=== PATIENT | female | born 1970 | race Caucasian/White ===

== ENCOUNTER → 2018-01-05 | Outpatient (CLI) | payer BC ==
[2018-01-06 10:26] LABS: Beef IgE <0.35 kU/L (<0.35); Beef IgE Class CLASS 0; Chicken IgE Class CLASS 0; Pork IgE Class CLASS 0; Yeast Bakers/Brew IgE <0.35 kU/L (<0.35)
[2018-01-06 10:27] LABS: Avocado Class CLASS 0; Banana IgE Class CLASS 0; Coffee IgE <0.35 kU/L (<0.35); Coffee IgE Class CLASS 0; Cow's Milk IgE Class CLASS 0; Egg White IgE <0.35 kU/L (<0.35); Hazelnut IgE <0.35 kU/L (<0.35); Hazelnut IgE Class CLASS 0; Kiwi IgE <0.35 kU/L (<0.35); Latex IgE Class CLASS 0; Peanut IgE <0.35 kU/L (<0.35); Potato IgE <0.35 kU/L (<0.35); Potato IgE Class CLASS 0; Soybean IgE <0.35 kU/L (<0.35)
== END | disposition home or self-care (01) ==
LOC: LABWHC1 10:48
PROVIDERS: ATTEND Otolaryngology
DX: J30.89 Other allergic rhinitis (principal)
CPT/HCPCS: 36415; 86001; 86003

== ENCOUNTER 2020-06-13 09:16 | Day surgery (SDC) | payer BC ==
[2020-06-10 17:00] VITALS: BMI 25.1
[~2020-06-13 09:16] MED LIST: LACTATED RINGERS 1,000 ML IV SCH
[2020-06-13 09:48] VITALS: RESP 16; TEMP 98
[2020-06-13] MEDS ORDERED: PROPOFOL 10 MG/ML 20 ML VIAL IV ONE (11:14)
[2020-06-13] MEDS ORDERED: MIDAZOLAM 2 MG/2 ML VIAL ONE (11:14)
[2020-06-13] MEDS ORDERED: fentaNYL (PF) 50 MCG/ML 2 ML AMP ONE (11:14)
--- NOTE | 2020-06-13 11:29 | P.PCN ---
Date of Procedure: 06/13/20 Procedure(s) Performed: BRIEF HISTORY: Patient is a 50-year-old pleasant white female scheduled for an elective colonoscopy as a part of screening for colorectal neoplasia. PROCEDURE PERFORMED: Colonoscopy with biopsy. PREOPERATIVE DIAGNOSIS: Screening for colon cancer. IV sedation per Anesthesia. PROCEDURE: After informed consent was obtained, the patient, was brought into the endoscopy unit. IV sedation was administered by Anesthesia under continuous monitoring. Digital rectal examination was normal. Initially the Olympus CF-160 flexible video colonoscope was then inserted in the rectum, gradually advanced into the cecum without any difficulty. Careful examination was performed as the scope was gradually being withdrawn. Ileocecal valve and the appendiceal orifice were visualized and appeared normal. Prep was excellent. Mucosa of the cecum, ascending colon, transverse colon, descending colon, sigmoid colon, and rectum appeared normal. In the rectosigmoid colon there was a 3 mm and 5 mm polyp that was removed by cold biopsy. Retroflexion was performed in the rectum and no lesions were seen. The patient tolerated the procedure well. IMPRESSION: 3 mm and 5 mm rectosigmoid polyps status post cold biopsy Rest of the colon appeared normal RECOMMENDATIONS: Findings of this examination were discussed with the patient as well as a family.. She was advised to follow with the biopsy results. If the biopsy shows an adenoma she can have a repeat colonoscopy in 5 years
[2020-06-13 11:45] VITALS: BP 100/68; PULSE 76
== END 2020-06-13 12:01 | disposition home or self-care (01) ==
LOC: ORWHC2ENDO 09:16
PROVIDERS: ATTEND Internal Medicine Gastroenterology
DX: Z12.11 Encounter for screening for malignant neoplasm of colon (principal); D12.5 Benign neoplasm of sigmoid colon; G43.909 Migraine, unspecified, not intractable, without status migrainosus; K58.9 Irritable bowel syndrome, unspecified; Z79.899 Other long term (current) drug therapy
CPT/HCPCS: 88305; 84703; 45380; J2250; J3010; J2704

== ENCOUNTER → 2020-07-25 | Outpatient (CLI) | payer BC ==
--- NOTE | 2020-07-28 12:26 | MM ---
Reason for exam: additional evaluation requested from prior study. Last mammogram was performed 7 years ago. History: Patient is nulliparous. Benign cyst aspiration of the right breast, January 2020. Benign cyst aspiration of the right breast, May 2019. Took hormonal contraceptives for 18 years beginning at age 18. Physical Findings: Nurse Summary: 3cm nodule in the right breast at 11 o'clock (nurse ms). MG 3D Diag Mammo W/Cad [facility] Bilateral CC and MLO view(s) were taken. Prior study comparison: August 03, 2013, bilateral MG screening mammo w CAD. August 31, 2011, CAD bilateral diagnostic mammogram. The breast tissue is extremely dense which could obscure a lesion on mammography. Bilateral diffuse waxing/waning nodules most likely cysts, known. These results were verbally communicated with the patient and result sheet given to the patient on 07/25/20. ASSESSMENT: Incomplete: need additional imaging evaluation, BI-RAD 0 RECOMMENDATION: Ultrasound of the right breast. (palpable, 11 o'clock)
--- NOTE | 2020-07-28 12:28 | USB ---
Reason for exam: additional evaluation requested from abnormal screening. History: Patient is nulliparous. Benign cyst aspiration of the right breast, January 2020. Benign cyst aspiration of the right breast, May 2019. Took hormonal contraceptives for 18 years beginning at age 18. US Breast Limited RT Right limited breast ultrasound including focal area of concern, retroareolar and axilla demonstrates a 5.5 x 2.4 x 3.5cm cystic lesion at 2 o'clock, large simple cyst, benign appearing. These results were verbally communicated with the patient and result sheet given to the patient on 07/25/20. ASSESSMENT: Benign, BI-RAD 2 RECOMMENDATION: Routine screening mammogram of both breasts in 1 year.
== END | disposition home or self-care (01) ==
LOC: RADMAMWWP 14:55
PROVIDERS: ATTEND Obstetrics & Gynecology
DX: N64.89 Other specified disorders of breast (principal); N60.01 Solitary cyst of right breast
CPT/HCPCS: 77062; 77066

== ENCOUNTER → 2022-05-19 | Outpatient (CLI) | payer BC ==
--- NOTE | 2022-05-19 14:40 | USB ---
Reason for Exam: Additional evaluation requested from abnormal screening. Patient History: Menarche at age 14. Patient has no children. Hormonal Contraceptives for 18 years from age 18 until age 36. 01/2020, Benign Cyst Aspiration on the right side. 05/2019, Benign Cyst Aspiration on the right side. Risk Values: Tonya 5 year model risk: 1.1%. NCI Lifetime model risk: 8.8%. Technique: Method: Whole Breast Handheld. Prior Study Comparison: 08/03/2013 Bilateral Screening Mammogram, [facility]. 07/25/2020 Bilateral Diagnostic Mammogram, [facility]. 05/12/2022 Bilateral MG screening mammo w CAD, [facility]. Findings: The whole breast of the left breast, the axilla of the left breast and the retroareolar of the left breast were scanned. A complete US of all four quadrants of the breast , axilla, and retro-areolar region were reviewed. * Innumerable cysts are present throughout. * A couple hypoechoic lesions are present, at 3:00, 5 cm from the nipple measuring 7 x 6 x 5 mm and at 4:00, 5 cm from the nipple measuring 7 x 7 x 6 mm. * Both of these are circumscribed with posterior through transmission. Internal echoes are present and could represent debris. Six-month follow-up to reassess. * Additional complex cystic area behind the nipple measuring 7 x 6 x 5 mm may have some internal nodularity or debris. Six-month follow-up to reassess. Otherwise, no axillary lymphadenopathy or suspicious solid lesion. Overall Assessment: Probably benign, BI-RAD 3 Management: Diagnostic Breast Ultrasound of the left breast in 6 months. 1. Patient should continue monthly self breast exams. 2. A clinical breast exam by your physician is recommended on an annual basis. 3. This exam should not preclude additional follow-up of suspicious palpable abnormalities. Electronically signed and approved by: Jesus Scott M.D. Radiologist
== END | disposition home or self-care (01) ==
LOC: RADUSWWP 13:02
PROVIDERS: ATTEND Obstetrics & Gynecology
DX: R92.8 Other abnormal and inconclusive findings on diagnostic imaging of breast (principal)

== ENCOUNTER → 2022-12-16 | Outpatient (CLI) | payer BC ==
--- NOTE | 2022-12-16 12:05 | USB ---
Reason for Exam: Additional evaluation requested from abnormal screening. Patient History: Menarche at age 14. Patient has no children. Hormonal Contraceptives for 18 years from age 18 until age 36. 01/2020, Benign Cyst Aspiration on the right side. 05/2019, Benign Cyst Aspiration on the right side. Risk Values: Tonya 5 year model risk: 1.1%. NCI Lifetime model risk: 8.8%. Technique: Method: Whole Breast Handheld. Prior Study Comparison: 08/03/2013 Bilateral Screening Mammogram, [facility]. 07/25/2020 Bilateral Diagnostic Mammogram, [facility]. 05/12/2022 Bilateral MG screening mammo w CAD, [facility]. Findings: The whole breast of the left breast, the axilla of the left breast and the retroareolar of the left breast were scanned. A complete US of all four quadrants of the breast, axilla, and retro-areolar region were reviewed. Multiple cysts are present throughout of varying sizes, largest measuring up to 2.0 cm. Dense tissue is also present throughout. At the 3:00 position, 5 cm from the nipple, there is a 9 x 7 x 6 mm oval hypoechoic lesion which is 2 mm larger from prior exam. Again, a debris-filled cyst is suspected. Continued follow-up recommended. At the 4:00 position, 5 cm from the nipple, there is a 7 x 6 x 6 mm round hypoechoic lesion with through-transmission and this may also represent a debris-filled cyst and remains unchanged for 6 months. In the subareolar region, a complex cyst measuring 8 x 7 x 5 mm previously measured 7 x 6 x 5 mm. Unchanged for 6 months. Ongoing follow-up recommended. At the axilla located deep, there is a round 6 x 6 x 5 mm hypoechoic lesion indeterminate between a debris-filled cyst and a small solid area. This may be slightly smaller compared to 9 mm previously. Overall Assessment: Probably benign, BI-RAD 3 Management: Diagnostic Mammogram of both breasts in 6 months. Diagnostic Breast Ultrasound of the left breast in 6 months. A clinical breast exam by your physician is recommended on an annual basis and results should be correlated with mammographic findings. This exam should not preclude additional follow-up of suspicious palpable abnormalities. Results were given to the patient verbally at the time of exam. Electronically signed and approved by: Jesus Scott M.D. Radiologist
== END | disposition home or self-care (01) ==
LOC: RADUSWWP 10:23
PROVIDERS: ATTEND Obstetrics & Gynecology
DX: N60.02 Solitary cyst of left breast (principal); R93.89 Abnormal findings on diagnostic imaging of other specified body structures

== ENCOUNTER → 2023-01-14 | Outpatient (CLI) | payer BC ==
--- NOTE | 2023-01-14 09:43 | US ---
EXAMINATION TYPE: US abdomen complete DATE OF EXAM: 01/14/2023 COMPARISON: NONE CLINICAL INDICATION: Female, 52 years old with history of R10.30 LOWER ABDOMINAL PAIN, UNSPECIFIED; A bdomen pain TECHNIQUE: Multiple sonographic images of the abdomen are obtained. FINDINGS: EXAM MEASUREMENTS: Liver Length: 13.7 cm Gallbladder Wall: 0.2 cm CBD: 0.3 cm Spleen: 8.5 cm Right Kidney: 9.3 x 4.3 x 4.4 cm Left Kidney: 9.3 x 4.7 x 4.3 cm Pancreas: visualized portions wnl, limited by overlying midline bowel gas Liver: mildly heterogeneous, 3.1 x 2.7 x 3.3cm cyst right lobe Gallbladder: 0.4cm non mobile hyperechoic focus seen along posterior wall - ? polyp, 0.6cm non mobil e stone within fundus Evidence for sonographic Barroso's sign: yes CBD: visualized portions wnl, limited by overlying midline bowel gas Spleen: visualized portions wnl, limited by overlying bowel gas Right Kidney: wnl Left Kidney: wnl Upper IVC: wnl Abd Aorta: wnl The liver is homogenous. Thin-walled right hepatic lobe 3.3 cm cyst. The intrahepatic portion of the IVC and proximal abdominal aorta are within normal limits. Cholelithiasis demonstrated. 6 mm gallblad yaya polyp. No wall thickening or surrounding fluid. Reported positive sonographic Barroso sign. Common bile duct is unremarkable. The visualized portions of the pancreas are homogenous. The spleen is u nremarkable. Kidneys are symmetric and free of hydronephrosis. No renal lesions are seen. IMPRESSION: 1. Cholelithiasis with reported positive sonographic Barroso's sign however no wall thickening or surr ounding fluid to suggest acute cholecystitis. Consider further evaluation with nuclear medicine HIDA scan if there is concern for acute cholecystitis. 2. 6 mm gallbladder polyp. Follow-up ultrasound in 6 months is recommended. Excellent 3. Simple right hepatic lobe 3.3 cm cyst.
--- NOTE | 2023-01-14 09:49 | US ---
EXAMINATION TYPE: US pelvic complete DATE OF EXAM: 01/14/2023 COMPARISON: US 2022 CLINICAL INDICATION: Female, 52 years old with history of R10.30 LOWER ABDOMINAL PAIN, UNSPECIFIED; A bdomen pain, history of partial hysterectomy June 2022 TECHNIQUE: Transabdominal sonographic images of the pelvis were acquired. Date of LMP: May 2022 EXAM MEASUREMENTS: Right Ovary: 1.4 x 1.3 x 1.8 cm Left Ovary: 2.6 x 1.4 x 1.6 cm 1. Uterus: surgically absent 2. Endometrium: surgically absent 3. Right Ovary: 1.0cm hypoechoic area 4. Left Ovary: wnl 5. Bilateral Adnexa: wnl 6. Posterior cul-de-sac: wnl Uterus and endometrium are surgical absent. Dominant follicle within the right ovary. Left ovary appe ars unremarkable. No free fluid. IMPRESSION: Postsurgical changes from partial hysterectomy without ultrasound evidence for acute pelvic process.
== END | disposition home or self-care (01) ==
LOC: RADUSWWP 08:27
PROVIDERS: ATTEND Family Medicine
DX: K80.20 Calculus of gallbladder without cholecystitis without obstruction (principal); K76.89 Other specified diseases of liver; Z90.710 Acquired absence of both cervix and uterus
CPT/HCPCS: 76700; 76856

== ENCOUNTER → 2023-06-24 | Outpatient (CLI) | payer BC ==
--- NOTE | 2023-06-24 09:46 | MM ---
Reason for Exam: Follow-up at short interval from prior study. Last mammogram was performed 1 year(s) and 1 month(s) ago. Patient History: Menarche at age 14. Patient has no children. Hormonal Contraceptives for 18 years from age 18 until age 36. 01/2020, Benign Cyst Aspiration on the right side. 05/2019, Benign Cyst Aspiration on the right side. Risk Values: Tonya 5 year model risk: 1.1%. NCI Lifetime model risk: 8.6%. Prior Study Comparison: 08/03/2013 Bilateral Screening Mammogram, [facility]. 07/25/2020 Bilateral Diagnostic Mammogram, [facility]. 05/12/2022 Bilateral MG screening mammo w CAD, [facility]. Tissue Density: The breasts are extremely dense, which lowers the sensitivity of mammography. Findings: Analyzed By CAD. The pattern is symmetrical. Large circumscribed rounded areas are present bilaterally. These appear essentially stable from comparison. No suspicious groups of microcalcifications, spiculated or lobular masses, architectural distortion or other secondary signs of malignancy are mammographically apparent. Overall Assessment: Benign, BI-RAD 2 Management: Screening Mammogram of both breasts in 1 year. A negative mammogram report should not preclude additional follow up of suspicious palpable abnormalities. Patient should continue monthly self breast exam. A clinical breast exam by your physician is recommended on an annual basis and results should be correlated with mammographic findings. Note on Tonya scores and lifetime risk: 1. A Tonya score greater than 3% is considered moderate risk. If this is the case, consider specialist referral to assess eligibility for a risk reducing agent. 2. If overall lifetime risk for the development of breast cancer is 20% or higher, the patient may qualify for future screening with alternating mammogram and breast MRI. Electronically signed and approved by: Joselito Jain D.O. Radiologis
== END | disposition home or self-care (01) ==
LOC: RADMAMWWP 09:14
PROVIDERS: ATTEND Obstetrics & Gynecology
DX: R92.8 Other abnormal and inconclusive findings on diagnostic imaging of breast (principal); R92.343 Mammographic extreme density, bilateral breasts
CPT/HCPCS: 77066

== ENCOUNTER → 2023-08-11 | Outpatient (CLI) | payer BC ==
--- NOTE | 2023-08-11 08:11 | MM ---
Reason for Exam: Clinical finding. Last screening mammogram was performed 2 month(s) ago. Indicated Problems: Palpable abnormality of the right side for 2 Week(s). Patient History: Menarche at age 14. Patient has no children. Hysterectomy at age 52. Postmenopausal. Hormonal Contraceptives for 18 years from age 18 until age 36. 01/2020, Benign Cyst Aspiration on the right side. 05/2019, Benign Cyst Aspiration on the right side. Risk Values: Tonya 5 year model risk: 1.1%. NCI Lifetime model risk: 8.6%. Prior Study Comparison: 08/31/2011 Bilateral Diagnostic Mammogram, [facility]. 08/03/2013 Bilateral Screening Mammogram, [facility]. 07/25/2020 Bilateral Diagnostic Mammogram, [facility]. 05/12/2022 Bilateral MG screening mammo w CAD, [facility]. 06/24/2023 Bilateral MG diagnostic mammo w CAD [facility], [facility]. Tissue Density: Right: The breasts are extremely dense, which lowers the sensitivity of mammography. Findings: Analyzed By CAD. Multiple underlying circumscribed masses, most of which are obscured. The palpable marker along the inferior aspect of the breast corresponds to a 2 cm oval circumscribed mass. Largest mass may measure up to 4.6 cm. Further ultrasound evaluation recommended. Overall Assessment: Incomplete: need additional imaging evaluation, BI-RAD 0 Management: Diagnostic Breast Ultrasound of the right breast. Electronically signed and approved by: Jesus Scott M.D. Radiologist
--- NOTE | 2023-08-11 08:36 | USB ---
Reason for Exam: Clinical finding. Patient History: Menarche at age 14. Patient has no children. Hysterectomy at age 52. Postmenopausal. Hormonal Contraceptives for 18 years from age 18 until age 36. 01/2020, Benign Cyst Aspiration on the right side. 05/2019, Benign Cyst Aspiration on the right side. Risk Values: Tonya 5 year model risk: 1.1%. NCI Lifetime model risk: 8.6%. Technique: Method: Whole Breast Handheld. Prior Study Comparison: 07/25/2020 Bilateral Diagnostic Mammogram, [facility]. 05/12/2022 Bilateral MG screening mammo w CAD, [facility]. 06/24/2023 Bilateral MG diagnostic mammo w CAD [facility], [facility]. Findings: The whole breast of the right breast, the axilla of the right breast and the retroareolar of the right breast were scanned. A complete US of all four quadrants of the breast, axilla, and retro-areolar region were reviewed. Numerous cysts are present throughout, the largest is at 12:00 measuring up to 4.1 cm. The new palpable area at 6:00, 5 cm from the nipple corresponds to a second dominant 4.0 x 2.8 x 1.4 cm cyst. No suspicious solid mass or axillary lymphadenopathy. Overall Assessment: Benign, BI-RAD 2 Management: Screening Mammogram of both breasts in 10 months. If these cysts are symptomatic, percutaneous ultrasound-guided cyst aspiration can be performed. Given the complexity of the breasts due to the multiple underlying cystic masses, consider annual exam as bilateral diagnostic mammograms. A clinical breast exam by your physician is recommended on an annual basis and results should be correlated with mammographic findings. This exam should not preclude additional follow-up of suspicious palpable abnormalities. Results were given to the patient verbally at the time of exam. Electronically signed and approved by: Jesus Scott M.D. Radiologist
== END | disposition home or self-care (01) ==
LOC: RADMAMWWP 07:36
PROVIDERS: ATTEND Family Medicine
DX: N60.11 Diffuse cystic mastopathy of right breast (principal); N63.10 Unspecified lump in the right breast, unspecified quadrant; R92.341 Mammographic extreme density, right breast; Z78.0 Asymptomatic menopausal state
CPT/HCPCS: 77061; 77065

== ENCOUNTER → 2023-08-26 | Day surgery (SDC) | payer BC ==
--- NOTE | 2023-08-31 10:53 | MM ---
Reason for Exam: Post Procedure Mammogram. Last screening mammogram was performed 2 month(s) ago. Patient History: Menarche at age 14. Patient has no children. Hysterectomy at age 52. Postmenopausal. Hormonal Contraceptives for 18 years from age 18 until age 36. 01/2020, Benign Cyst Aspiration on the right side. 05/2019, Benign Cyst Aspiration on the right side. Risk Values: Tonya 5 year model risk: 1.1%. NCI Lifetime model risk: 8.6%. Prior Study Comparison: 05/12/2022 Bilateral MG screening mammo w CAD, [facility]. 06/24/2023 Bilateral MG diagnostic mammo w CAD [facility], [facility]. 08/11/2023 Right MG 3D diag mammo w/cad RT, [facility]. Tissue Density: Right: The breasts are extremely dense, which lowers the sensitivity of mammography. Pathology Description: Location: 6 o'clock. Coil Clip The ultrasound guided cyst aspiration procedure was explained to the patient. The risks, benefits, alternatives were discussed. An informed consent was then obtained. A time out was performed. The patient was placed in supine positioning for imaging and for the procedure. The overlying skin was prepped with betadine and sterilely draped in usual sterile fashion. 5 mL 1% lidocaine was used as anesthetic into the skin and deeper breast tissue up to area of concern in the left breast 6:00 o'clock breast, 5 cm from nipple. This area correlates with the patient's large cyst which is painful. Under ultrasound guidance, an 18-gauge needle was advanced into the cyst and aspiration yielded 5 mL of dark yellow fluid. There appears to be essentially complete collapse of the cyst. The fluid was labeled and sent for laboratory analysis. A coil clip was left in lesion. Good hemostasis was obtained with direct pressure. Postprocedure mammogram: The patient was transferred to mammography for physician ordered post procedure mammogram for clip placement verification. The clip is in the expected region of the biopsy. The patient tolerated the procedure well without any immediate complication. The patient was discharged to home in stable condition. Impression: Successful ultrasound guided cyst aspiration right breast. Cytology pending. Pathology Results: Result: Benign, Benign cyst. Pathology and radiology were reviewed. Findings are concordant. RIGHT BREAST AT 6:00, ASPIRATE: Clusters of bland apocrine lining cells and foamy histiocytes in a background of acute inflammation, consistent with inflamed benign apocrine cyst/cyst contents. Overall Assessment: Benign Assessment: MG diagnostic mammo RT wo CAD - Right: Benign, BI-RAD 2. Management: Diagnostic Breast Ultrasound of the right breast in 6 months. Electronically signed and approved by: Joselito Jain D.O. Radiologis
== END ==
LOC: RADUSWWP 10:18
PROVIDERS: ATTEND Family Medicine
DX: N61.0 Mastitis without abscess (principal); R92.8 Other abnormal and inconclusive findings on diagnostic imaging of breast; Z78.0 Asymptomatic menopausal state
CPT/HCPCS: 88108; 88305; 77065; 76942; 19000; A4648

== ENCOUNTER → 2024-09-17 | Outpatient (CLI) | payer BC ==
--- NOTE | 2024-09-17 10:22 | MR ---
EXAMINATION TYPE: MR brain and iac wo/w con DATE OF EXAM: 09/17/2024 9:46 AM COMPARISON: CT abdomen pelvis most recent from CLINICAL INDICATION: Female, 54 years old with history of H93.12 TINNITUS, LEFT EAR, Left ear tinnitu s. TECHNIQUE: Multiplanar, multisequence images of the brain and brainstem were acquired before and aft er administration of a 7 mL IV Gadobutrol. Diffusion weighted imaging was performed. Additional con ed-down sequences through the internal auditory canals and posterior cranial fossa before and after I V contrast administration. FINDINGS: Diffusion weighted images demonstrate no evidence of an acute ischemic lesion in the brain. T2/FLAIR weighted sequences show no abnormal white matter signal changes. Midline structures show normal morphology. The craniocervical junction is normal. There is mild volume loss overlying the bilateral cerebral convexities. The ventricles are of normal caliber. There is hypoplastic right vertebral artery which may terminate as a PICA branch. There is no evidence of an acute intracranial hemorrhage, infarct, mass, mass-effect or an extra-axia l fluid collection. There is no cerebellopontine angle mass. The internal auditory canals are symmetric and clear. Scattered fluid within the bilateral mastoid air cells, left greater than right. Brainstem and skull base abnormalities are not seen. Post contrast images demonstrate no evidence of pathologic enhancement in the posterior cranial michael a or the internal auditory canals. Dural venous sinuses are patent. There is no abnormal enhancement of the labyrinths. Scattered mild to moderate mucosal thickening throughout the ethmoid air cells. Globes are intact. IMPRESSION: 1. Mild cerebral atrophy. No acute intracranial abnormality or enhancing lesions seen. 2. Some scattered nonspecific fluid within the bilateral mastoid air cells, left greater than right. Correlate for any mastoid pain to exclude mastoiditis. 3. Otherwise, no specific abnormality on acoustic MRI. 4. [id number] chronic ethmoid sinus disease. [facility], Workstation: EM, 09/17/2024 10:20 AM
== END | disposition home or self-care (01) ==
LOC: RADMRIMAIN 08:49
PROVIDERS: ATTEND Otolaryngology
DX: H93.12 Tinnitus, left ear (principal); G31.9 Degenerative disease of nervous system, unspecified; J32.2 Chronic ethmoidal sinusitis
CPT/HCPCS: 70553; A9585

== ENCOUNTER → 2024-10-05 | Outpatient (CLI) | payer BC ==
--- NOTE | 2024-10-05 20:28 | MM ---
Reason for Exam: Screening (asymptomatic). Last mammogram was performed 1 year(s) and 4 month(s) ago. Patient History: Menarche at age 14. Patient has no children. Hysterectomy at age 52. Postmenopausal. Hormonal Contraceptives for 18 years from age 18 until age 36. 08/26/2023, Benign US breast aspiration single RT on the right side. 01/2020, Benign Cyst Aspiration on the right side. 05/2019, Benign Cyst Aspiration on the right side. Risk Values: Tonya 5 year model risk: 1.2%. NCI Lifetime model risk: 8.5%. Prior Study Comparison: 06/24/2023 Bilateral MG diagnostic mammo w CAD [facility], [facility]. 08/11/2023 Right MG 3D diag mammo w/cad RT, [facility]. 08/26/2023 Right MG diagnostic mammo RT wo CAD, [facility]. Tissue Density: The breasts are heterogeneously dense, which may obscure small masses. Findings: Analyzed By CAD. There is extensive fluctuating bilateral nodularity for which further ultrasound evaluation is recommended. Microclip right breast from prior biopsy. No suspicious microcalcifications are seen. Overall Assessment: Incomplete: need additional imaging evaluation, BI-RAD 0 Management: Diagnostic Breast Ultrasound of both breasts. For extensive bilateral fluctuating nodularity. [facility] will attempt to contact patient to return for ultrasound. [facility], , 10/05/2024 8:25 PM. Electronically signed and approved by: Jesus Scott M.D. Radiologist
== END | disposition home or self-care (01) ==
LOC: RADMAMWWP 15:37
PROVIDERS: ATTEND Obstetrics & Gynecology
DX: Z12.31 Encounter for screening mammogram for malignant neoplasm of breast (principal); R92.333 Mammographic heterogeneous density, bilateral breasts; Z78.0 Asymptomatic menopausal state; Z92.0 Personal history of contraception
CPT/HCPCS: 77067